=== PATIENT | female | born 1980 | race Caucasian/White ===

== ENCOUNTER → 2016-12-04 | Outpatient (CLI) | payer OTHER ==
[~2016-12-04] MED LIST: FEOSOL325 MG PO; KEFLEX500 MG PO; PREFERA OB TAB1 EACH PO
[2016-12-04 10:13] LABS: CALCIUM 8.9 mg/dL (8.5-10.5)
== END | disposition disaster alternative care site (69) ==
LOC: GLAB 09:13 → GRAD 10:00
PROVIDERS: Otolaryngology
DX: E04.1 Nontoxic single thyroid nodule (principal)

== ENCOUNTER → 2016-12-05 | Outpatient (CLI) | payer OTHER | END | disposition disaster alternative care site (69) | LOC: GRAD 09:30 | DX: R59.9 Enlarged lymph nodes, unspecified (principal) ==